=== PATIENT | female | born 1985 | race Caucasian/White ===

== ENCOUNTER 2022-07-01 02:21 | Outpatient (CLI) | payer MEDICAID, SELFPAY ==
[2022-07-01 07:11] LABS: Abs Immature Grans 0.01 10^3/uL (0.0-0.06); Absolute Basophil Count 0.03 10^3/uL (0.0-0.2); Absolute Eosinophil Count 0.17 10^3/uL (0.0-0.7); Absolute Lymphocyte Count 2.14 10^3/uL (1.2-3.4); Absolute Monocyte Count 0.59 10^3/uL (0.1-0.8); Absolute Neutrophil Count 4.71 10^3/uL (1.2-6.7); Basophils % 0.4; Eosinophils % 2.2; HGB 13.3 g/dL (11.2-15.7); Immature Grans % 0.1; MCH 30.7 pg (27.0-33.0); MCHC 32.4 % (32.0-36.0); MCV 95 fL (80-95); MPV 10.5 fL (8.0-11.0); Monocytes % 7.7; Neutrophils % 61.6; Platelet Count 250 10^3/uL (130-400); RBC 4.33 10^6/uL (3.93-5.22); RDW 12.6 % (11.7-14.6); RDW-SD 43.8 fL; WBC 7.65 10^3/uL (4.4-10.8)
[2022-07-01 07:12] LABS: ESR 12 mm/hr (0-20)
[2022-07-01 08:13] LABS: ALT 30 U/L (14-59); AST 19 U/L (15-37); Albumin 4.2 g/dL (3.4-5.0); Alkaline Phosphatase 64 U/L (46-116); Anion Gap 6.3 mmol/L (3-11); BUN 14 mg/dL (7-18); Bilirubin, Total 0.6 mg/dL (0.2-1.0); CO2 27.7 mmol/L (21.0-32.0); CREATININE 0.9 mg/dL (0.55-1.02); Calculated LDL 58 mg/dL (<100); Chloride 105 mmol/L (98-107); Cholesterol 123 mg/dL (<200); Estimated GFR 83.92 (mL/min/1.73m2); Ferritin 113 ng/mL (8-252); Glucose 96 mg/dL (74-106); HDL Cholesterol 59 mg/dL (40-60); Potassium 3.9 mmol/L (3.5-5.1); Sodium 139 mmol/L (136-145); TSH (W/Ref FT4) 1.12 uIU/mL (0.36-3.74); Total Protein 7.7 g/dL (6.4-8.2); Triglyceride 34 mg/dL (<150); Vitamin B12 617 pg/mL (193-986)
[2022-07-01 18:20] LABS: Rheumatoid Factor <8.6 IU/mL (<12.0)
[2022-07-04 08:32] LABS: ANA Interpretation Positive (Negative); ANA Titer Pattern 1:80 Speckled
== END 2022-07-01 02:22 | disposition home or self-care (01) ==
LOC: LBO 02:22
PROVIDERS: Visit Provider Nurse Practitioner
DX: E61.1 Iron deficiency (principal); H04.123 Dry eye syndrome of bilateral lacrimal glands; R21 Rash and other nonspecific skin eruption; R53.83 Other fatigue; R63.5 Abnormal weight gain; Z13.220 Encounter for screening for lipoid disorders
CPT/HCPCS: 36415; 80053; 80061; 85652; 82607; 82728; 84443; 85025; 86038; 86431

== ENCOUNTER 2022-08-07 18:58 | Outpatient (REF) | payer MEDICAID, SELFPAY ==
--- OUTSIDE RECORDS SUMMARY | 2022-08-07 19:00 | XMS_ITS ---
Author Name Jose Luis Talbert Address [address], [place] [id number] Organization [facility] Address [address], [place] [id number] Care Team Providers Care Fund Raiser Name Role Phone Jose Luis Talbert [facility] [phone] PROBLEMS Type Condition ICD9-CM Code [id number] Code Onset Dates Condition Status SNOMED Code Problem Constipation, unspecified constipation type K59.00 Active 99569858 Problem IUD (intrauterine device) in place Z97.5 Active 428044573 Problem Mood change F39 Active 345757102 Problem Atypical squamous cells cannot exclude high grade squamous intraepithelial lesion on cytologic smear of cervix (ASC-H) R87.611 Active 111978488 Problem Cervical high risk HPV (human papillomavirus) test positive R87.810 Active 564565312 ALLERGIES Substance Reaction Event Type Date Status codeine hives, violent N/V Drug Allergy July, Ac tive Aspirin N/V Drug Allergy July, Active ENCOUNTERS Encounter Location Date Diagnosis [address] [id number] July, Encounter for routine checking of intrauterine contraceptive device (IUD) Z30.431 and IUD (intrauterine device) in place Z97.[address] [id number] Jun, 6 weeks follow-up Z39.2 ; Encounter for insertion of intrauterine contraceptive device (IUD) Z30.430 ; ASCUS of cervix with negative high risk HPV R87.610 and Asymptomatic varicose veins of both lower extremities I83.93 [facility] [address] [place] [id number] Jun, Encounter for screening laboratory testing for COVID-19 virus Z20.[address] [id number] May, 2 weeks follow-up Z39.[address] [id number] May, [address] [id number] Apr, Supervision of elderly multigravida in third trimester O09.[address] [id number] 17 Apr, 2020 Supervision of elderly multigravida in third trimester O09.[address] [id number] 05 Apr, 2020 Encounter for supervision of other normal , third trimester Z34.83 ; 34 weeks gestation of Z3A.34 and Decreased movements in third trimester, single or unspecified fetus O36.[address] [id number] Mar, Supervision of elderly multigravida in third trimester O09.523 ; 32 weeks gestation of Z3A.32 and Gastroesophageal reflux disease with esophagitis without hemorrhage K21.[address] [id number] Mar, Supervision of elderly multigravida in third trimester O09.523 and Encounter for immunization Z23 [address] [id number] Feb, Encounter for supervision of elderly multigravida in second trimester, antepartum O09.[address] [id number] Jan, Encounter for supervision of elderly multigravida in second trimester, antepartum O09.[address] [id number] Jan, [address] [id number] Dec, Encounter for supervision of elderly multigravida in second trimester, antepartum O09.522 and Encounter for immunization Z23 [address] [id number] Nov, Encounter for supervision of elderly multigravida in second trimester, antepartum O09.522 and 15 weeks gestation of Z3A.[address] [id number] Nov, [address] [id number] Nov, [address] [id number] Oct, Elderly multigravida in first trimester O09.[address] [id number] Oct, Elderly multigravida in first trimester O09.521 and High grade squamous intraepithelial lesion on cytologic smear of cervix (HGSIL) R87.[address] [id number] Sep, Amenorrhea N91.2 ; Encounter for supervision of normal in multigravida in first trimester Z34.81 and Constipation, unspecified constipation type K59.[address] [id number] Aug, [address] [id number] May, High grade squamous intraepithelial lesion on cytologic smear of cervix (HGSIL) R87.613 and Cervical high risk human papillomavirus (HPV) DNA test positive R87.[address] [id number] May, HSIL (high grade squamous intraepithelial lesion) on Pap smear of cervix R87.613 and Cervical high risk HPV (human papillomavirus) test positive R87.[address] [place] [id number] Jan, HSIL (high grade squamous intraepithelial lesion) on Pap smear of cervix R87.[address] [id number] Dec, [address] [id number] Dec, Atypical squamous cells cannot exclude high grade squamous intraepithelial lesion on cytologic smear of cervix (ASC-H) R87.611 and Amenorrhea N91.[address] [id number] Nov, Encounter for IUD removal Z30.432 ; Encounter for screening for malignant neoplasm of cervix Z12.4 ; Encounter for screening for infections with predominantly sexual mode of transmission Z11.3 and Pre-conception counseling Z31.[address] [id number] Dec, Encounter for routine checking of intrauterine contraceptive device Z30.431 ; Mood change F39 and Encounter for test, result negative Z32.[address] [id number] Nov, Encounter for removal and reinsertion of intrauterine contraceptive device Z30.433 IMMUNIZATIONS Vaccine Route Administration Date Status Tdap - Adult IM Intramuscular Mar 28, 2020 Administere d Flu (adult) IM Intramuscular Jan 18, 2020 Administere d SOCIAL HISTORY Qualifiers Date Never Smoker REASON FOR REFERRAL FUNCTIONAL STATUS PLAN OF CARE Activity Details VITAL SIGNS Height 5 ft 4 in in 2020-08-10 Height 5 ft 4 in in 2020-07-06 Height 5 ft 4 in in 2020-06-08 Height 5 ft 4 in in 2019-10-14 Height 5 ft 4 in in 2019-05-31 Height 5 ft 4 in in 2018-12-24 Height 5 ft 4 in in 2018-11-30 Height 5 ft 4 in in 2015-11-30 Weight 149.4 lbs 2020-08-10 Weight 149.4 lbs 2020-07-06 Weight 156.8 lbs 2020-06-08 Weight 171.2 lbs 2020-05-16 Weight 172 lbs 2020-05-09 Weight 171.6 lbs 2020-04-27 Weight 167.4 lbs 2020-04-11 Weight 166.8 lbs 2020-03-28 Weight 164.4 lbs 2020-03-12 Weight 164.2 lbs 2020-02-13 Weight 162.4 lbs 2020-01-18 Weight 156.4 lbs 2019-12-14 Weight 152.6 lbs 2019-11-15 Weight 152 lbs 2019-10-14 Weight 164 lb 0 oz lbs 2019-05-31 Weight 164 lb 8 oz lbs 2018-12-24 Weight 171 lb 6 oz lbs 2018-11-30 Weight 156 lb 8 oz lbs 2015-11-30 BMI 25.64 kg/m2 2020-08-10 BMI 25.64 kg/m2 2020-07-06 BMI 26.91 kg/m2 2020-06-08 BMI 26.09 kg/m2 2019-10-14 BMI 28.15 kg/m2 2019-05-31 BMI 28.23 kg/m2 2018-12-24 BMI 29.41 kg/m2 2018-11-30 BMI 26.86 kg/m2 2015-11-30 Blood pressure systolic 110 mm Hg Blood pressure diastolic 68 mm Hg 2020-07 MEDICATIONS Medication Instructions Dosage Frequency Start Date End Date Duration Status Complete 14-0.4 MG Orally Once a day 1 tablet 24h Active Tums 500 MG Orally Once a day 1 tablet 24h 30 day(s) Not-Takin g Vitamin B6 50 MG Orally Once a day 1 tablet 24h 30 day(s) Not-Takin g Mirena (52 MG) 20 MCG/24HR as directed Jun, Active Unisom Not-Taki n g Motrin Not-Taki n g Iron 28 MG Orally Once a day 1 tablet 24h 30 day(s) Active PriLOSEC OTC 20 MG Orally Once a day 1 tablet 30 minutes before morning meal 24h Mar, 30 day(s) Not-Takin g PROCEDURES Procedure Date Ordered Result Body Site SUBSEQUENT CARE Apr 27, 2020 SUBSEQUENT CARE Mar 12, 2020 CARE VISIT July 06, 2020 IMMUNIZATION ADMINISTRATION Mar 28, 2020 SUBSEQUENT CARE Dec 14, 2019 LNG-RELEASING IUC SYS 52MG 5 YR DUR Nov 30, 2015 SUBSEQUENT CARE Apr 11, 2020 SUBSEQUENT CARE Jan 18, 2020 CARE VISIT June 08, 2020 SUBSEQUENT CARE May 09, 2020 SUBSEQUENT CARE Feb 13, 2020 COLPOSCOPY WITH BIOPSY(S) AND ECC Dec 24, 2018 INITIAL CARE VISIT Nov 15, 2019 IUD REMOVAL Nov 30, 2018 SUBSEQUENT CARE May 16, 2020 [facility] -PHONE E/M PHYS/QHP 5-10 MIN June 26, 2020 SUBSEQUENT CARE Mar 28, 2020 IUD REMOVAL Nov 30, 2015 URINE TEST Dec 24, 2018 URINE TEST Jan 11, 2016 Flu (adult) Jan 18, 2020 PELVIC ULTRASOUND LIMI October 14, 2019 INSERT INTRAUTERINE DEVICE July 06, 2020 IUD INSERTION Nov 30, 2015 ALISON - Mirena- 52 mg July 06, 2020 IMMUNIZATION ADMINISTRATION Jan 18, 2020 Tdap - Adult Mar 28, 2020 RESULTS Name Result Date Reference Range Pap Lb, rfx HPV all pth 2020-07-06 . Note: . Clinical history: DIAGNOSIS: Neg SRINIVASA neg HR HPV Specimen adequacy: Additional comment: Recommendation: Performed by: Electronically signed by: Test ordered: Maturation index: Amended report: Addendum: QC reviewed by: Cytology history: Special procedure: QA comment: Diagnosis provided by: Source: Pathologist provided ICD9: Clinician provided ICD9: Interpretation LBP CPT Code Automation COVID 19 SCREENING PCR ([id number]) 7 SARS-CoV-2, NASREEN Not Detected Not Detected URINE DIP ([facility]) 2020-05-16 Color Clarity Glucose negative Bilirubin Ketones Specific Spencer Blood PH Protein negative Uro Nitrates Leukocytes GROUP-B STREP SCREEN - RAPID PCR 2020-05-16 Group B Strep by PCR NEGATIVE NEGATIV E URINE DIP ([facility]) 2020-05-09 Color Clarity Glucose negative Bilirubin Ketones Specific Spencer Blood PH Protein negative Uro Nitrates Leukocytes URINE DIP ([facility]) 2020-04-27 Color Clarity Glucose negative Bilirubin Ketones Specific Spencer Blood PH Protein negative Uro Nitrates Leukocytes URINE DIP ([facility]) 2020-04-11 Color Clarity Glucose negative Bilirubin Ketones Specific Spencer Blood PH Protein negative Uro Nitrates Leukocytes URINE DIP ([facility]) 2020-03-28 Color Clarity Glucose negative Bilirubin Ketones Specific Spencer Blood PH Protein negative Uro Nitrates Leukocytes CBC, WITH AUTO DIFF 2020-03-12 WBC 9.7 4.8-10.8 RBC 3.51 4.20-5.40 HGB 10.9 12.0-16.0 HCT 32.2 37.0-47.0 MCV 91.7 81.0-99.0 MCH 31.1 27.0-31.0 MCHC 33.9 32.0-37.0 RDW-CV 12.8 11.5-14.5 PLT 225 130-400 MPV 10.5 7.4-10.4 NE% 74.6 42.2-75.2 LY% 16.1 20.5-51.1 MO% 7.3 1.7-9.3 EO% 1.5 0.9-2.9 BA% 0.2 0.0-0.8 NE# 7.2 1.4-6.5 LY# 1.6 1.2-3.4 MO# 0.7 0.1-0.6 EO# 0.2 0.0-0.2 BA# 0.0 0.0-0.2 URINE DIP ([facility]) 2020-03-12 Color Clarity Glucose negative Bilirubin Ketones Specific Spencer Blood PH Protein trace Uro Nitrates Leukocytes GLUCOSE OSBALDO GESTATIONAL(50GM) 2020-03-12 GLUCOSE - 1 HR POST 109 <=135 URINE DIP ([facility]) 2020-01-18 Color Clarity Glucose negative Bilirubin Ketones Specific Spencer Blood PH Protein negative Uro Nitrates Leukocytes URINE DIP ([facility]) 2019-12-14 Color Clarity Glucose negative Bilirubin Ketones Specific Spencer Blood PH Protein negative Uro Nitrates Leukocytes US OB GREATER THAN 14 WEEKS 2020-01-18 MATERNI 21 PLUS W/ESS AND SC A ([id number]) 2019-11-17 DATE SENT SEE SEPARATE REPORT CBC, WITH AUTO DIFF 2019-11-17 WBC 11.8 4.8-10.8 RBC 3.73 4.20-5.40 HGB 11.7 12.0-16.0 HCT 34.8 37.0-47.0 MCV 93.3 81.0-99.0 MCH 31.4 27.0-31.0 MCHC 33.6 32.0-37.0 RDW-CV 13.3 11.5-14.5 PLT 234 130-400 MPV 10.5 7.4-10.4 NE% 76.1 42.2-75.2 LY% 15.7 20.5-51.1 EO% 1.8 0.9-2.9 BA% 0.3 0.0-0.8 NE# 9.0 1.4-6.5 LY# 1.9 1.2-3.4 MO# 0.7 0.1-0.6 EO# 0.2 0.0-0.2 BA# 0.0 0.0-0.2 HEPATITIS B SURFACE ANTIGEN, 2019-11-17 HEP B SURFACE AG NON-REACTIVE NON-REACTIV E HIV12P 2019-11-17 HIV1/O/2 Abs,P24Ag NON-REACTIVE NON-REACT AR RUBELLA IGG ANTIBODY 2019-11-17 RUBELLA 475.8 >=10.0 RUB HEAD REFERENCE RANGE: (IU /mL) <5.0 : NON-IMMUNE 5.0 - 9.9 : SONG ZONE >= 10.0 : IMMUNE SYPHILIS, 2019-11-17 SYPHILIS NON-REACTIVE NON-REACTIVE TYPE AND SCREEN, 2019-11-17 ABORh O POSITIVE ANTIBODY SCREEN NEGATIVE NEGATIVE TS COMM Pre-op Type & Screen specimens are valid for 7 days. If the patient has been transfused or been within the past 3 months, the specimen is only valid for 3 days. URINE DIP ([facility]) 2019-11-15 Color dark yellow Clarity cloudy Glucose negative Bilirubin negative Ketones negative Specific Spencer 1.020 Blood trace PH 6 Protein negative Uro normal Nitrates negative Leukocytes trace Pap Lb, Ct-Ng, rfx HPV all 2019-11-15 . Chlamydia, Nuc. Acid Amp Gonococcus, Nuc. Acid Amp Note: . Clinical history: DIAGNOSIS: Specimen adequacy: Additional comment: Recommendation: Performed by: Electronically signed by: Test ordered: Maturation index: Amended report: Addendum: QC reviewed by: Cytology history: Special procedure: QA comment: Diagnosis provided by: Source: Pathologist provided ICD9: Clinician provided ICD9: Interpretation LBP CPT Code Automation CULTURE URINE 2019-11-15 CHLAMYDIA/GONOCOCCUS, by PCR 2019-11-15 C. trachomatis by PCR PCR GENITAL SPECIMEN N. gonorrhoeae by PCR Chlamydia trachomatis, NASREEN Neisseria gonorrhoeae, NASREEN Please note: Pap Lb, HPV-hr 2019-05-31 . Note: Clinical history: DIAGNOSIS: ASCUS neg HR HV Specimen adequacy: Additional comment: Recommendation: Performed by: Electronically signed by: Test ordered: Maturation index: Amended report: Addendum: QC reviewed by: Cytology history: Special procedure: QA comment: Diagnosis provided by: Source: Pathologist provided ICD9: Clinician provided ICD9: Interpretation HPV, high-risk LBP CPT Code Automation Test (Rapid) Urine 2018-12-24 Result negative Control Passed Biopsy 2018-12-24 Pap Lb, HPV-hr 2018-11-30 . Note: Clinical history: DIAGNOSIS: ASC-H +HR HPV 16 Specimen adequacy: Additional comment: Recommendation: Performed by: Electronically signed by: Test ordered: Maturation index: Amended report: Addendum: QC reviewed by: Cytology history: Special procedure: QA comment: Diagnosis provided by: Source: Pathologist provided ICD9: Clinician provided ICD9: Interpretation HPV, high-risk LBP CPT Code Automation CHLAMYDIA/GONOCOCCUS, by PCR 2018-11-30 C. trachomatis by PCR Not detected PCR GENITAL SPECIMEN N. gonorrhoeae by PCR not detected Chlamydia trachomatis, NASREEN Neisseria gonorrhoeae, NASREEN Please note: REASON FOR VISIT *DECORATOR INSPECTOR 5 week follow up Mirena placed 07/06, *DECORATOR INSPECTOR 6wk pp & IUD insertion, [facility] covid test, COVID 19Screening (SEND OUT), *DECORATOR INSPECTOR 2 week , IUD benefits appointment 06/08/2020, delivered, *OB follow up, [facility]: OB Eld 2+/3rd tri, OB follow up, OB follow up, *OB follow up, [facility]: OB f/u, *OB follow up, [facility]: OB Eld 2+ tri, OB follow up, OB follow up, OB follow up, FYI- movement, OB follow up, *OB follow up, [facility]: OB Eld 2+/ tri, DECORATOR INSPECTOR 6 month repap and IUD insert, Update Demographics- Additional Info, labs, labs and spotting, OB New OB & 6 mo. repap, *DECORATOR INSPECTOR preg conf, LMP ? 08/29, no PA requied IUD coverage, pap order, *DECORATOR INSPECTOR pap only, LLETZ, *UPDATE schedule surgical date., *DECORATOR INSPECTOR Colposcopy, *DECORATOR INSPECTOR MIRENA REMOVAL, NO REINSERTION, DECORATOR INSPECTOR MIRENA REMOVAL, NO REINSERTION, DECORATOR INSPECTOR IUD check, DECORATOR INSPECTOR Mirena removal & replace, and pap Insurance Providers Health Insurance Type Health Plan Insurance Address Health Plan Insurance Phone Health Plan Insurance Name Health Plan Coverage Dates Member ID Patient Relationship to Subscriber Patient Address Patient Phone Patient Name Patient Date of Subscriber ID Subscriber Name Subscriber Date of Group No [place] [address] ATTN CLAIMS [facility] [id number] [phone] [place] self Gavi Daft [id number] [facility] [address] [place] [id number] [facility] self Gavi Daft [id number] [place] [address] ATTN CLAIMS [facility] [id number] [place] Gavi Daft [id number]
--- OUTSIDE RECORDS SUMMARY | 2022-08-07 19:00 | XMS_ITS ---
Author Name Mariela Mccray Address [address], [place] [id number] Organization [facility] Address [address], [place] [id number] Care Team Providers Care Sales Review Clerk Name Role Phone Mariela Mccray Unavailable [phone] PROBLEMS Type Condition ICD9-CM Code [id number] Code Onset Dates Condition Status SNOMED Code Problem Other atopic dermatitis L20.89 Active 18302445 ALLERGIES Substance Reaction Event Type Date Status Codeine Sulfate hives, vomiting Drug Allergy Aug, Active Aspirin stomach pain Drug Allergy Aug, Active ENCOUNTERS Encounter Location Date Diagnosis [facility] [address] [place] [id number] Aug, Pain in left leg M79.605 [facility] [address] [id number] May, Other seborrheic keratosis L82.1 and Other atopic dermatitis L20.89 [facility] [address] [id number] Nov, [facility] [address] [id number] Nov, [facility] [address] [id number] Mar, Other atopic dermatitis L20.89 [facility] [address] [place] [id number] Feb, Personal history of nicotine dependence Z87.891 [facility] [address] [place], [place] [id number] Dec, [facility] [address] [place], [place] [id number] Dec, Routine general medical examination at health care facility V70.0 ; Need for prophylactic vaccination and inoculation, Influenza V04.81 and Personal history of tobacco use, presenting hazards to health V15.82 IMMUNIZATIONS Vaccine Route Administration Date Status Influenza (split) Unknown Jan 10, 2014 Administer ed SOCIAL HISTORY Qualifiers Date Former Smoker REASON FOR REFERRAL FUNCTIONAL STATUS PLAN OF CARE Activity Details VITAL SIGNS Heart Rate 78 /min 2019-09-14 Heart Rate 72 /min 2019-05-25 Heart Rate 72 /min 2016-04-11 Heart Rate 72 /min 2015-03-07 Heart Rate 78 /min 2014-01-10 Height 66 in 2019-09-14 Height 66 in 2019-05-25 Height 66 in 2016-04-11 Height 66 in 2015-03-07 Height 66 in 2014-01-10 Weight 150 lbs 2019-09-14 Weight 165 lbs 2019-05-25 Weight 144 lbs 2016-04-11 Weight 150 lbs 2015-03-07 Weight 145 lbs 2014-01-10 BMI 24.21 kg/m2 2019-09-14 BMI 26.63 kg/m2 2019-05-25 BMI 23.24 kg/m2 2016-04-11 BMI 24.21 kg/m2 2015-03-07 BMI 23.40 kg/m2 2014-01-10 Blood pressure systolic 120 mm Hg Blood pressure diastolic 82 mm Hg 2019-08 MEDICATIONS Medication Instructions Dosage Frequency Start Date End Date Duration Status Cyclobenzaprine HCl 5 MG Orally Once a day 1 tablet at bedtime as needed 24h Aug, 14 days Active Melatonin 3 MG Orally Once a day 1 tablet at bedtime as needed 24h 30 day(s) Active Pimecrolimus 1 % Externally Twice a day 1 application to affected area 12h Mar, 30 days Active Motrin IB 200 MG Orally every 6 hrs 1 tablet as needed 6h Active Triamcinolone Acetonide 0.1 % Externally Twice a day 1 application to affected area; do not use on face or around eyes 12h Mar, 30 days Active 27-1 MG Orally Once a day 1 tablet 24h 30 day(s) Active PROCEDURES Procedure Date Ordered Result Body Site General Health Panel Jan 10, 2014 IMMUNIZATION ADMIN Jan 10, 2014 VENIPUNCT, ROUTINE* Jan 10, 2014 LIPID PANEL Jan 10, 2014 Influenza (split) Jan 10, 2014 RESULTS Name Result Date Reference Range COMPREHENSIVE METABOLIC PANEL 2014-01-10 ALBUMIN 4.6 3.6-5.1 CBC (INCLUDES DIFF/PLT) 2014-01-10 LIPID PANEL 2014-01-10 CHOL/HDLC RATIO 2.8 < OR = 5.0 TSH 2014-01-10 TSH 1.80 REASON FOR VISIT Annual, left leg pain, new mole she would like checked out, Update Demographics - Additional Info, Update Demographics - Personal Info, exema, would like to quit smoking, Update Demographics - Personal Info, New Patient- hasnt been to the doctors for a long time. Pt states she wants a generalcheck up and would like to quit smoking. Insurance Providers Health Insurance Type Health Plan Insurance Address Health Plan Insurance Phone Health Plan Insurance Name Health Plan Coverage Dates Member ID Patient Relationship to Subscriber Patient Address Patient Phone Patient Name Patient Date of Subscriber ID Subscriber Name Subscriber Date of Group No [facility] [address] [place] [address] [facility] self Gavi Daft [id number] [facility] [address], [address] [facility] [address] [facility] self Gavi Daft [id number]
--- OUTSIDE RECORDS SUMMARY | 2022-08-07 19:00 | XMS_ITS | Continuity of Care Document ---
Author Name Unknown Organization [facility] Address [address] [place] [address] Care Team Providers Care Manager Of Manufacturing Name Role Phone JONELLE ROGERS, CNA Chaves Primary Care Physician Encounter [facility] NBR [id number] Date(s): 07/25/22 - 07/25/22 [facility] [address] [place] [address] [place] Encounter Diagnosis Human papillomavirus deoxyribonucleic acid test positive, high risk on cervical specimen(Discharge Diagnosis) - 07/25/22 Women's annual routine gynecological examination(Discharge Diagnosis) - 07/25/22 Cervical cancer screening(Discharge Diagnosis) - 07/25/22 Intrauterine contraceptive device in situ(Discharge Diagnosis) - 07/25/22 Abdominal pain, LLQ(Discharge Diagnosis) - 07/25/22 Mastalgia in female(Discharge Diagnosis) - 07/25/22 Weight gain finding(Discharge Diagnosis) - 07/25/22 Galactorrhea in female(Discharge Diagnosis) - 07/25/22 Discharge Disposition: Home or Self Care Attending Physician: Jose Luis Talbert MD, FACOG Allergies, Adverse Reactions, Alerts Substance Reaction Severity Status codeine hives, violent N/V Severe Active aspirin nausea, vomiting Unknown Active Assessment and Plan Future Appointments Functional Status 07/25/22 Other exposure to Infectious Disease Non e Medications Mirena 52 mg intrauteral device 0 Refill(s) Start Date: 07/22/22 Status: Ordered Motrin IB 200 mg oral tablet 0 Refill(s) Start Date: 07/22/22 Status: Ordered multivitamin adult, oral tablet 1 tab, Oral, Daily, # 30 tab, 0 Refill(s) Start Date: 07/25/22 Status: Ordered PriLOSEC OTC 20 mg oral delayed release tablet 0 Refill(s) Start Date: 07/22/22 Status: Ordered Problem List Condition Confirmation Course Effective Dates Status H ealth Status Informant Affective psychosis Confirmed Active Atypical squamous cells on cervical Papanicolaou smear cannot exclude high grade squamous intraepithelial lesion Confirmed Active Constipation Confirmed Active Human papillomavirus deoxyribonucleic acid test positive, high risk on cervical specimen Confirmed Active Intrauterine contraceptive device in situ Confirmed Active Procedures Procedure Date Related Diagnosis Body Site Status LLETZ - Large loop excision of transformation zone 01/26/19 Completed Vital Signs Most recent to oldest [Reference Range]: 1 Blood Pressure [90-140/60-90 mmHg] 112/7 6mmHg (07/25/22 8:45 AM) Weight 76.1 kg (07/25/22 8:45 AM) Weight Measured (lbs) 167.772 lb (07/25/22 8:45 AM) [place] Body Weight Calculated 59.3 kg (07/25/22 8:45 AM) Height 167.64 cm (07/25/22 8:45 AM) Height/Length Measured (inches) 66 inch (07/25/22 8:45 AM) BSA Measured 1.88 m2 (07/25/22 8:45 AM) Body Mass Index 27.08 kg/m2 (07/25/22 8:45 AM) Social History Social History Type Response Tobacco Former tobacco user Tobacco Use:. 1 Sex Female 1quit over 12 years ago Physician Outpatient Note * Jose Luis Talbert MD, FACOG: PERFORM Event Display: Office Clinic Note Physician Authored Date: [id number] UYNI BERNAL :1985 Age:36 years Sex:Female Visit Date:07/25/2022 Primary Care Physician: CAN SAL NP Chief Complaint Well Woman Exam. LLQ pain with organism the last 2 months. Dull pain L breast for 4 months. Weight gain, hot flashes, mood swings, no period since 2009. Labs ??few weeks ago were normal including TSH, autoimmune, lipids. Mirena IUD inserted 06/2020. History of Present Illness No periods with Mirena.?? LLQ pain with intercourse but only when orgasm.?? Left breast soreness and remote FH of breast cancer as well as first degree relatives with breast problems. Some nipple discharge. Review of Systems NS- neg. CV- neg. Resp- nonsmoker. GI- sensitive bowels related to emotions rather than dietary. - see HPI. MS- neg. Endocrine- weight gain- exercising. Physical Exam Vitals & Measurements BP:??112/76?? HT:??167.64??cm?? WT:??76.1??kg?? BMI:??27.08?? BSA:??1.88?? General: [Alert and oriented, well nourished, no acute distress] HEENT: [Normocephalic, long healthy hair acne or hirsutism.].?? Neck: [Supple, no thyroid enlargement, no lymphadenopathy]. Lungs: [Clear to auscultation, non-labored respiration].?? Heart: [Normal rate, regular rhythm, no murmurs].?? Breasts: [symmetrical, glandular centrally, no masses, no skin discoloration, left side expressiblecram color nipple discharge, normal areola, no nodularity, no palpable lymphadenopathy] Abdomen: [Soft, non-tender, non-distended, normal bowel sounds, no masses]. Musculoskeletal: [Grossly normal range of motion and strength, no tenderness or swelling]. Skin: [Skin is warm, dry, no rashes, nevus on left back]. Neurologic: [Awake, alert, and oriented,] Psychiatric: [Cooperative, appropriate mood and affect] Vulva:[normal external female genitalia, no masses, no atrophy, [place]th[place]???s and [place]???s glands normal] Bladder:[urethra normal, no bladder prolapse] Vagina:[normal pink rugated mucosa, normal vaginal discharge, adequate pelvic support] Cervix: [normal appearance, IUD string present,??no lesions or lacerations], pap done, slight spotting.] Uterus:[normal size, shape, non tender, mobile, no prolapse] Adnexa:[small ovary present on the right, not palpable on the left.?? No nodularity of the cul de sac.] Perineum/Anus:[no skin changes or hemorrhoids] ?? Assessment/Plan 1.??Women's annual routine gynecological examination??Z01.419 ?? 2.??Human papillomavirus deoxyribonucleic acid test positive, high risk on cervical specimen??R87.810 Pap done. ?? 3.??Abdominal pain, LLQ??R10.32 ain only with orgasm, not with intercourse every time.?? No identifiable etiology but might be endometriosis.?? Discussed possible laparoscopy if persists or gets worse. ?? 4.??Intrauterine contraceptive device in situ??Z97.[address] with no signs of infection. ?? 5.??Galactorrhea in female??N64.3 No bloody discharge and consistent with h/o fibrocystic breast changes. ?? 6.??Mastalgia in female??N64.4 Can try flax seed and good supporting bra. ?? 7.??Weight gain finding??R63.5 Working on [employer] with exercise. ?? 8.??Cervical cancer screening??Z12.4 Call with pap- annual needed. Ordered: Outside Lab Request, 07/25/22 9:10:00 EDT, Stop date 07/25/22 9:10:00 EDT, [facility]-Pap + HPV, Cervical cancer screening ?? Problem List/Past Medical History Ongoing Affective psychosis Atypical squamous cells on cervical Papanicolaou smear cannot exclude high grade squamous intraepithelial lesion Constipation Human papillomavirus deoxyribonucleic acid test positive, high risk on cervical specimen Intrauterine contraceptive device in situ Historical Procedure/Surgical History ???LLETZ - Large loop excision of transformation zone (01/27/2019) Medications Mirena 52 mg intrauteral device Motrin IB 200 mg oral tablet multivitamin adult, oral tablet, 1 tab, Oral, Daily PriLOSEC OTC 20 mg oral delayed release tablet Allergies codeine??(hives, violent N/V) aspirin??(nausea, vomiting) Social History Alcohol Past Electronic Cigarette/Vaping Electronic Cigarette Use: Never. 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 Exercise Exercise frequency: 5-6 times/week.- Comments: boot camp 3X week, and exercises at home, yoga Home/Environment Lives with Children, Spouse. Living situation: Home/Independent. Sexual Sexually active: Yes. Substance Use Never Tobacco Former tobacco user Tobacco Use:.- Comments: quit over 12 years ago Family History Breast cancer: Mother and Aunt/Uncle. COPD - Chronic obstructive pulmonary disease: Grandmother (M). Dementia: Grandmother (M). Diabetes mellitus: Father. Lupus: Mother. Mental illness: Sister. Obesity: Sister. Ulcerative colitis: Mother and Brother. Family Member(s): ?? , at age: 38 Years. Cause of : Family Member(s): ?? GPARENT, at age: Unknown. Cause of : Family Member(s): ?? GPARENT, at age: 94 Years. Cause of : Family Member(s): ?? GPARENT, at age: 94 Years. Cause of : Electronically Signed on 07/25/22 09:35 AM Jose Luis Talbert MD, [facility] Patient Care team information Care Team Personnel Name: CAN SAL NP Position: No Access Member Role: Primary Care Physician Address: Address: [address] [place] [id number] Care Team Related Persons Name: GUILLE BERNAL Address: Home [address] [place], [place] [id number] [facility] [place]
[2022-08-07 21:04] LABS: Bacteria Moderate HPF (Negative); C & S Indicated? C&S Done As Ordered; Casts Negative LPF (Negative); Crystals Negative HPF (Negative); Epithelial Cells Few HPF (Negative); Mucus Negative (Negative); WBC >50 HPF (0-5)
== END 2022-08-07 18:59 | disposition home or self-care (01) ==
LOC: LBN 18:58
PROVIDERS: Visit Provider Physician Assistant Medical
DX: N39.0 Urinary tract infection, site not specified (principal)
CPT/HCPCS: 87077; 81015; 87086; 87186

== ENCOUNTER 2022-11-12 09:59 | Outpatient (CLI) | payer MEDICAID, SELFPAY ==
--- NOTE | 2022-11-12 08:30 | DI.RAD_ITS ---
Exam(s) XR ANKLE LT COMPLETE EXAM: XR ANKLE LT COMPLETE CLINICAL HISTORY: pain TECHNIQUE: 2D digital imaging was performed of the left ankle. Three images were obtained. AP, lat eral and oblique views were obtained. COMPARISON: CR XR ANKLE 3 VIEWS LEFT from 11/01/2022 CR XR FOOT 2 VIEW LEFT from 11/01/2022 FINDINGS: BONES: On the oblique view there appears to be a fracture at the distal and medial aspect of the talu s. No bony destructive lesion is seen. There is a well corticated osseous density at the dorsal aspe ct of the talonavicular joint which appears old. JOINTS:The ankle mortise is normally aligned. SOFT TISSUE: There is soft tissue swelling around the ankle. IMPRESSION: Question of a fracture involving the distal medial aspect of the talus appreciated on the oblique vie w. A CT scan of the ankle should be considered for further evaluation. DATA REPOSITORY: RADIATION DOSE DELIVERED:
== END 2022-11-12 10:00 | disposition home or self-care (01) ==
LOC: DIORS 09:59
PROVIDERS: PCP Nurse Practitioner; Referring Provider Nurse Practitioner; Visit Provider Physician Assistant
DX: M25.572 Pain in left ankle and joints of left foot (principal)
CPT/HCPCS: 73610

== ENCOUNTER 2022-12-10 08:00 | Outpatient (CLI) | payer MEDICAID, SELFPAY ==
--- NOTE | 2022-12-10 08:10 | DI.RAD_ITS ---
Exam(s) XR FOOT LT COMPLETE EXAM: XR FOOT LT COMPLETE CLINICAL HISTORY: left talus fx. TECHNIQUE: 2D digital imaging was performed of the left foot. Three images were obtained. AP, obli que and lateral views were obtained. COMPARISON: CR XR FOOT 2 VIEW LEFT from 11/01/2022 FINDINGS: BONES: Cortical discontinuity seen on the oblique view at the medial aspect of the talus which may re present a small fracture. The osseous density seen at the dorsal aspect of the talonavicular joint a ppears unchanged. No bony destructive lesion is seen. No new fracture or dislocation is seen. JOINTS: No dislocation present. The joint spaces are well maintained. SOFT TISSUE: There is soft tissue swelling of the foot. IMPRESSION: 1. Question of cortical discontinuity on the oblique view at the medial aspect of the talus which may represent a small cortical fracture. 2. Soft tissue swelling of the left foot. DATA REPOSITORY: RADIATION DOSE DELIVERED:
== END 2022-12-10 08:01 | disposition home or self-care (01) ==
LOC: DIORS 08:00
PROVIDERS: PCP Nurse Practitioner; Visit Provider Physician Assistant
DX: R22.42 Localized swelling, mass and lump, left lower limb (principal)
CPT/HCPCS: 73630

== ENCOUNTER 2023-01-07 09:18 | Outpatient (CLI) | payer MEDICAID, SELFPAY ==
--- NOTE | 2023-01-07 08:00 | DI.RAD_ITS ---
Exam(s) XR FOOT LT COMPLETE EXAM: XR FOOT LT COMPLETE CLINICAL HISTORY: F/U FRACTURE. TECHNIQUE: 2D digital imaging was performed of the left foot. Three images were obtained. AP, obli que and lateral views were obtained. COMPARISON: CR XR FOOT LT COMPLETE from 12/10/2022 FINDINGS: BONES: There is no change in alignment of the medial aspect of the distal talus best appreciated on t he oblique view. No bony destructive lesion is seen. JOINTS: No dislocation present. SOFT TISSUE: Normal. IMPRESSION: Stable talar fracture. DATA REPOSITORY: RADIATION DOSE DELIVERED:
== END 2023-01-07 09:19 | disposition home or self-care (01) ==
LOC: DIORS 09:18
PROVIDERS: PCP Nurse Practitioner; Visit Provider Student in an Organized Health Care Education/Training Program
DX: S92.122 Displaced fracture of body of left talus (principal); X58.XXXD Exposure to other specified factors, subsequent encounter
CPT/HCPCS: 73630

== ENCOUNTER → 2023-02-19 00:49 | Outpatient (CLI) | payer MEDICAID, SELFPAY ==
--- NOTE | 2023-02-19 08:15 | DI.CT_ITS ---
Exam(s) CT LOWER EXTREMITY LT WO EXAM: CT LOWER EXTREMITY LT WO CLINICAL HISTORY: pain,FX LT TALUS,s92.102A. TECHNIQUE: Imaging Protocol: Axial computed tomography images with coronal and sagittal reformatted images were created and reviewed. CONTRAST MATERIAL: Intravenous: Omnipaque 350 Contrast volume:structured data in ml Contrast route:I V - Oral: yes / no COMPARISON: CR XR ANKLE LT COMPLETE from 11/12/2022 CR XR FOOT LT COMPLETE from 12/10/2022 CR XR FOOT LT COMPLETE from 01/07/2023 FINDINGS: OSSEOUS: There is a of the cortex of the medial aspect of the talus, best seen on the coronal images. Talar d ome is unremarkable. No fractures on the lateral aspect of the talus. Accessory ossicle is noted do rsal to the talonavicular joint. Tibiotalar and subtalar joints are unremarkable as are the other re gional articulations. No obvious abnormal finding in the sinus tarsi. Accessory ossicle noted later al to the cuboid bone. IMPRESSION: Subtle on the medial cortex of the talus, just distal to the talar dome. RADIATION DOSE DELIVERED: Total DLP DATA REPOSITORY: All CT scans at this facility are submitted to the National Radiology Data Registry (NRDR) Dose Index Registry (DIR) with the [employer] (ACR). RADIATION OPTIMIZATION: All CT scans at this facility use at least one of these dose optimization te chniques: automated exposure control; mA and/or kV adjustment per patient size (includes targeted exa ms where dose is matched to clinical indication); or iterative reconstruction.
== END ==
PROVIDERS: PCP Nurse Practitioner; Visit Provider Student in an Organized Health Care Education/Training Program
DX: M79.662 Pain in left lower leg (principal)
CPT/HCPCS: 73700